=== PATIENT | female | born 1950 | race Caucasian/White ===

== ENCOUNTER 2020-04-05 09:34 | Outpatient (REF) | payer OTHER, SELFPAY ==
--- NOTE | ~2020-04-05 | XR_ITS ---
EXAMINATION: XR CHEST CLINICAL INFORMATION: Reactive TB positive COMPARISON: None TECHNIQUE: Frontal view of the chest was obtained. FINDINGS: No significant abnormality is noted involving the heart, lungs, mediastinum, bony thorax or soft tissues. XR/XR chest 1V IMPRESSION: No acute cardiopulmonary process.. No evidence for active tuberculosis.
== END 2020-04-05 09:35 | disposition home or self-care (01) ==
LOC: HO.XRAY 09:34
PROVIDERS: Visit Provider Internal Medicine
DX: Z11.1 Encounter for screening for respiratory tuberculosis (principal); R76.11 Nonspecific reaction to tuberculin skin test without active tuberculosis
CPT/HCPCS: 71045